=== PATIENT | female | born 1950 | race Caucasian/White ===

== ENCOUNTER 2025-01-01 17:58 | Emergency (ER) | payer MEDICARE, OTHER, SELFPAY ==
[2025-01-01 18:11] VITALS: BP 146/98
--- NOTE | 2025-01-01 20:08 | ED.SKININJ ---
HPI-Injury
General
Chief Complaint: Bite
Source: patient
Exam Limitations: none
Time Seen by Provider: 01/01/25 19:56
History of Present Illness-Injury
Initial Injury comments:
74-year-old female presents with 3 separate tick bites. The first 1 she noticed 8 days ago on the right shoulder. She also noticed 1 on the lateral aspect of the right leg about 3 or 4 days ago and noticed that her left ankle was itchy this
morning. She denies headache fever joint pain. She is concerned that the ticks may have been deer ticks. She has no complaints otherwise. She is healthy otherwise.
Phy Exam
Physical Exam
Physical Exam:
General: Well-appearing female no acute respiratory distress
HEENT: Normocephalic atraumatic
Skin: 3 separate areas of insect bites.. Patient states she pulled ticks off of these areas. No surrounding rashes. She notes some itchiness to the left ankle but no underlying fluctuance or induration or erythema.
Extremities: No cyanosis or edema
Course
Vital Signs
Initial and Last Documented VS:
Initial Vital Signs
Temp Pulse Resp BP Pulse Ox
97.8 F 73 18 146/98 97
01/01/25 18:11 01/01/25 18:11 01/01/25 18:11 01/01/25 18:11 01/01/25 18:11
Last Documented Vital Signs
Temp Pulse Resp BP Pulse Ox
97.8 F 73 18 146/98 97
01/01/25 18:11 01/01/25 18:11 01/01/25 18:11 01/01/25 18:11 01/01/25 18:11
MDM/Problems Addressed
Differential Diagnosis Includes:
Tick bites. Patient was able to remove all of the ticks that were attached to her. She had 3 separate ones. She is asymptomatic and is interested in testing for Lyme. Her first exposure was about 8 or 9 days ago. Explained that testing too
early may result in a false negative. Will test for Lyme today. Offered and discussed the role for doxycycline or other antibiotic to treat Lyme. She wishes to hold off until the test return or if you develop symptoms otherwise. She has never
had Lyme in the past that she knows of
*Critical Care Note
Total Time (30-74mins, 75-104mins- exclusive of procedures): Not Applicable
ED Attending Note
-
Portions of this chart may have been created with voice recognition software.� Occasional wrong word or��sound alike� substitutions may have occurred due to the inherent limitations of voice recognition software.
Discharge Plan
Departure
Patient Disposition: Home (Routine Discharge)
Date of Disposition: 01/01/25
Time of Disposition: 20:11
Patient with high blood pressure during this ER visit?: No
Discharge Problem:
Tick bite
Instructions: Insect bites and stings
Activity Restrictions/Additional Instructions:
You should receive a call if your Lyme test is positive. Please return here if you develop symptoms of headache joint pain fever fatigue or other concerning findings
Interventions
Interventions:
*Risk Screen - Suicide Last Done: 01/01/25 18:11
*General Assessment Last Done: 01/01/25 18:11
*Neglect/Abuse Screening Last Done: 01/01/25 18:11
Discharge Date and Time
Print Language: UKRAIN[place]
[2025-01-01 20:23] VITALS: BP 139/89
[2025-01-03 11:15] LABS: Lyme Antibody Screen, EIA Negative (Negative)
== END 2025-01-01 20:24 | disposition home or self-care (01) ==
LOC: EMR 17:58
PROVIDERS: Physician Assistant; EMERGENCY PHYSICIAN Emergency Medicine
DX: L29.9 Pruritus, unspecified (principal); M79.89 Other specified soft tissue disorders; W57.XXXA Bitten or stung by nonvenomous insect and other nonvenomous arthropods, initial encounter
CPT/HCPCS: 99283; 86618